=== PATIENT | female | born 1980 | race African-American/Black ===

== ENCOUNTER 2019-06-03 15:22 | Outpatient (RCR) | payer OTHER, SELFPAY ==
--- NOTE | 2019-06-03 16:53 | PTOPEVAL ---
PHYSICAL THERAPY EVALUATION AND PLAN OF CARE 06-03-2019 The PT evaluation was completed today for the diagnosis of chronic low back pain, radicular into R LE. The plan of treatment is 2x/week for 4 weeks, for land and aquatic exercises, with progression as tolerated. Thank you for referring Ms. Wellington to [facility]. Please review, sign, date and return this plan of care BRE. I agree with and certify that the following plan of care is medically necessary. Referring Physician Date Attending Provider: Dr. Filiberto Clark *PT Outpatient Evaluation Start: 06/03/19 15:41 Document 06/03/19 15:41 CLEMENTINA (Rec: 06/03/19 16:53 CLEMENTINA [id number]) Assessment Status Evaluation Outpatient Past Medical History Neurological History Hx Neurological Disorders No Significant History Cardiovascular History Hx Hypertension Yes: on meds Respiratory History Hx Other Respiratory Disorders Yes: sarcoidosis with oxygen 4L/min Gastrointestinal History Hx Gastroesophageal Reflux Disease Yes Genitourinary History Hx Genitourinary Disorders No Significant History Musculoskeletal History Hx Arthritis Yes: pain & arthritis in knees and ankles Hx Back Pain Yes: chronic low back pain Hx Other Musculoskeletal Disorders Yes: B carpal tunnel surgery; obesity Hematological History Hx Hematological Disorders No Significant History Endocrine History Hx Diabetes Yes: on meds HEENT History Hx Other HEENT Disorders Yes: wear glassess; sore R ear ? infection now Integumentary History Hx Eczema Yes Pain History Has Past Pain Affected Your Daily Life Yes: chronic back pain for 15- 20 yr ago Other History Hx Other Surgeries Yes: R axillary sweat gland removed; Evaluation Information Problem Diagnosis chronic low back pain radicular into R leg Onset Feb 2019 Subjective Information gradual increase in back pain, Query Text:As Reported By Patient/ no recent trauma or injury to Family back; R leg weaker and could not lift it; had injection to back in February 2019, helped for ~ 1 & 1/2 week, then pain returned; went to Urgent care and muscle relaxer from them helped, but told her they were for short term use only; Diagnostic Tests X-Rays For This Problem Yes: mild to mod lumbar spondylosis MRI For This
--- NOTE | 2019-07-10 13:40 | PCPTNOTE ---
PHYSICAL THERAPY DISCHARGE 07-10-2019 Attending Provider: Dr. Filiberto Vazquez Patient:Steven Wellington Date of :1980 Ms. Wellington has not returned for any further treatments since the PT evaluation on 06/03/2019, for the diagnosis of chronic low back pain. Therefore she will be discharged from therapy at this time. The goals were not addressed. Thank you for referring Steven to [facility]. Please review, sign, date and return this discharge summary BRE. I have been updated about the patient's current status and I agree with discharge from the above service at this time. Referring Physician Date
== END 2019-07-13 09:26 | disposition home or self-care (01) ==
LOC: ANHPT 15:22
DX: M54.5 Low back pain (principal); M47.26 Other spondylosis with radiculopathy, lumbar region; M47.816 Spondylosis without myelopathy or radiculopathy, lumbar region
CPT/HCPCS: 97162